=== PATIENT | female | born 1945 | race Caucasian/White ===

== ENCOUNTER → 2020-04-06 09:17 | Outpatient (CLI) | payer BC, SELFPAY ==
--- NOTE | ~2020-04-06 | DEXA_ITS ---
Bone Density Report Name: Heaven Juares Age: 75 Sex: Female Ethnicity: White Date of : 1945 Indication: postmenopausal; screening for osteoporosis; height loss; Referring Provider: MARYAN CRAIG Study: Bone densitometry was performed. Exam Date: April 06, 2020 Accession number: [id number] Bone Density: Region BMD T-score Z-score Classification AP Spine (L1, L3, L4) 1.049 0.0 2.5 Normal Femoral Neck (Left) 0.595 -2.3 -0.2 Osteopenia Total Hip (Left) 0.710 -1.9 -0.1 Osteopenia Femoral Neck (Right) 0.639 -1.9 0.2 Osteopenia Total Hip (Right) 0.694 -2.0 -0.2 Osteopenia Total Hip Mean 0.702 -2.0 -0.2 Osteopenia World Health Organization criteria for BMD impression classify patients as: Normal (T-score at or above -1.0), Osteopenia (T-score between -1.0 and -2.5), or Osteoporosis (T-score at or below -2.5). 10-year Fracture Risk(1): Major Osteoporotic Fracture 15% Hip Fracture 4.4% Reported Risk Factors: [place] (), Neck BMD=0.595, BMI=23.8 (1) FRAX(R) Version 3.08. Fracture probability calculated for an untreated patient. Fracture probability may be lower if the patient has received treatment. Clinical Information Provided by Patient: Patient maximum height was 61 Menopause Age: 59 Drinks caffeinated beverages Onset of menses at age 15 Number of children 0 Impression: The patient has low bone mass, based on the Left Femoral Neck T-score. The patient has an estimated ten-year risk of hip fracture of 4.4% and an estimated ten-year risk of major fracture of 15%, based on the WHO FRAX algorithm. Discussion: BONE DENSITY IS LOW AT ONE OR MORE SKELETAL SITES. THE PATIENT'S BMD AND CLINICAL RISK FACTORS CONTRIBUTE TO THIS PATIENT'S INCREASED RISK OF FRACTURE. This patient's lowest T-score is low at one or more skeletal sites. It meets the World Health Organization's (WHO) criteria for ?low bone mass? (T-score between -1.0 and -2.5). The patient's 10-year risk of hip fracture as calculated by FRAX exceeds the threshold where pharmacological therapy is recommended by the National Osteoporosis Foundation (NOF). However, all treatment decisions require clinical judgment and consideration of individual patient factors, including patient preferences, comorbidities, previous drug use, risk factors not captured in the FRAX model (e.g., frailty, falls, vitamin D deficiency, increased bone turnover, interval significant decline in bone density) and possible under or overestimation of fracture risk by FRAX. The patient should follow a healthful lifestyle (good nutrition with adequate calcium and vitamin D, and appropriate weight-bearing exercise). Follow-Up: Consider a repeat BMD and Vertebral Fracture Assessment (VFA) exam in 2 years or sooner if medically necessary, to reassess this patien
== END ==
PROVIDERS: PCP Family Medicine; Visit Provider Family Medicine
DX: Z78.0 Asymptomatic menopausal state (principal); M85.852 Other specified disorders of bone density and structure, left thigh; M85.851 Other specified disorders of bone density and structure, right thigh
CPT/HCPCS: 77080

== ENCOUNTER → 2022-06-30 07:19 | Outpatient (CLI) | payer BC, SELFPAY ==
--- NOTE | ~2022-06-30 | MR_ITS ---
MRI of the brain Clinical History: Gait disturbance Technique: Axial and sagittal T1-weighted images were acquired. These were followed by axial T2-weigh liliya, diffusion weighted, gradient, and FLAIR images. Following intravenous administration of 12 cc Mu ltiHance gadolinium, T1-weighted fat-sat imaging was performed in the axial and coronal planes. Findings: There is no acute infarct, intracranial hemorrhage, or mass lesion. There are numerous foca l hyperintense white matter lesions throughout the periventricular white matter on FLAIR imaging. Ventricles and subarachnoid spaces are minimally prominent. Orbits are unremarkable. Paranasal sinuse s and mastoids are clear. Major flow voids are intact. Grade I anterolisthesis of C4 over C5 noted, probable mild canal stenosis at this level. Sagittal mid line structures otherwise are unremarkable. No abnormal postcontrast enhancement identified. IMPRESSION: No acute infarct, intracranial hemorrhage, or mass lesion. Numerous focal white matter lesions, as detailed above. These likely represent chronic microvascular ischemic changes, however clinical correlation for any possibility of demyelinating disease is advise d. Grade I anterolisthesis of C4 over C5, as noted above. Consider follow-up dedicated cervical spine MR to better evaluate for discogenic disease, if indicated. Reviewed, dictated and finalized at [facility]. [employer] IMPRESSION: No acute infarct, intracranial hemorrhage, or mass lesion. Numerous focal white matter lesions, as detailed above. These likely represent chronic microvascular ischemic changes, however clinical correlation for any po ssibility of demyelinating disease is advised. Grade I anterolisthesis of C4 over C5, as noted above. Consider follow-up dedic ated cervical spine MR to better evaluate for discogenic disease, if indicated.
== END ==
PROVIDERS: PCP Family Medicine; Visit Provider Family Medicine
DX: R26.89 Other abnormalities of gait and mobility (principal); R90.82 White matter disease, unspecified; M43.12 Spondylolisthesis, cervical region
CPT/HCPCS: 70553; A9577